=== PATIENT | male | born 1985 | race Caucasian/White ===

== ENCOUNTER 2022-09-12 13:27 | Emergency (ER) | payer OTHER ==
[~2022-09-12] VITALS: Ht 175.3 cm; Wt 73.0 kg
[2022-09-12 18:00] VITALS: BP 132/80
[2022-09-12] MEDS ORDERED: KETOROLAC 30MG/ML VIAL IM ONE (18:00)
[2022-09-12] MEDS ORDERED: ACETAMINOPHEN 325MG TABLET PO ONE (18:00)
[2022-09-12 18:34] LABS: BASOPHILS % 0.2 % (0.0-2.0); HEMATOCRIT. 42.2 % (42.0-52.0); HEMOGLOBIN. 13.8 g/dL (14.0-18.0); LYMPHOCYTES % 7.5 % (20.0-50.0); MEAN CORPUSCULAR VOLUME 82.7 fL (80.0-94.0); MEAN PLATELET VOLUME 8.2 fl (7.4-10.4); MONOCYTES % 5.6 % (2.0-8.0); NEUTROPHILS % 86.7 % (40.0-76.0); PLATELET 296 x1000/uL (130-400); RED BLOOD CELL COUNT 5.11 mill/uL (4.7-6.1); RED CELL DISTRIBUTION WIDTH 14.9 % (11.6-14.6)
[2022-09-12 18:43] LABS: CHLORIDE 106 mEq/L (98-107)
[2022-09-12 19:05] LABS: CLARITY URINE CLEAR (CLEAR); COLOR URINE DARK YELLOW (YELLOW); KETONES URINE 2+ (NEGATIVE); LEUKOCYTE ESTERASE URINE NEGATIVE (NEGATIVE); NITRITE URINE NEGATIVE (NEGATIVE); OCCULT BLOOD URINE NEGATIVE (NEGATIVE); PROTEIN URINE 1+ (NEGATIVE)
== END 2022-09-12 19:08 | disposition left against medical advice (07) ==
LOC: ER 13:27
DX: M54.9 Dorsalgia, unspecified (principal); R32 Unspecified urinary incontinence; R53.1 Weakness
CPT/HCPCS: 36415; 80053; 81003; 85025; 96372; 99283; J1885; Z7610